=== PATIENT | male | born 1965 | race Caucasian/White ===

== ENCOUNTER 2025-01-08 22:31 | Emergency (ER) | payer BC, SELFPAY ==
[2025-01-08 22:35] VITALS: BP 172/113
[2025-01-08 23:06] LABS: COVID-19 Antigen Negative (Negative)
[2025-01-08 23:57] VITALS: BP 121/86
[2025-01-09] VITALS: BP 115/84
[2025-01-09 00:37] LABS: Hematocrit 44.7 % (39.0-52.0); Hemoglobin 15.6 g/dL (13.0-18.0); Mean Corp Hgb Conc. 34.9 g/dL (33.0-37.0); Mean Corpuscular Volume 89.9 fL (80.0-94.0); Nucleated Red Blood Cells % 0 % (-); Platelet Count 142 10^3/uL (130-400); Red Cell Dist. Width 14.6 % (11.5-14.5)
[2025-01-09 01:00] VITALS: BP 134/94
[2025-01-09 01:05] LABS: ALT (SGPT) 25 U/L (0-50); AST (SGOT) 31 U/L (17-59); Albumin 3.9 g/dl (3.5-5.0); Alkaline Phosphatase 62 U/L (38-126); Blood Urea Nitrogen 13 mg/dl (9-20); Calcium 9.1 mg/dl (8.4-10.2); Carbon Dioxide 27 mmol/L (22-30); Chloride 107 mmol/L (98-107); Glucose 91 mg/dl (70-99); Potassium 4.2 mmol/L (3.5-5.1); Sodium 142 mmol/L (135-145); Total Protein 6.4 g/dl (6.3-8.2); eGFR > 60.00
--- NOTE | 2025-01-09 01:13 | ED.GENMED ---
History of Present Illness
General
Chief Complaint: Fever
Source: patient
Exam Limitations: none
Time Seen by Provider: 01/08/25 23:31
Nursing documentation reviewed up to this point in time: agreed with
History of Present Illness
History of Present Illness:
59-year-old male with history of HTN, currently under treatment with chemotherapy for colon cancer with mets to the lungs, presents he states because 'my made me come, she thought I had meningitis.'
He states at 7:30 PM he developed a headache and had some neck discomfort. He states the headache was 6/10, frontal, he felt a little nauseous and at 8 PM he took 2 Motrin. He states his neck started being sore at work around 3 AM (he works at [employer]
overnight driving a truck). He states at 3:30 this morning his neck pain started, both sides, more annoying than painful. Pain is worse when turning his head to either side. He denies pain with swallowing. He states both his headache and his
nausea subsided after he took the ibuprofen at 8:00. He has had no fever. He has had no vomiting. He has had no diarrhea or constipation. He denies abdominal pain. He denies chest pain or trouble breathing. He has felt a little more fatigued
lately.
His was not home at the time and when she got home he told her about them and she made him come here for evaluation for meningitis.
Past History
Past History
ED Past Medical History: Cancer (Metastatic colon cancer to the lungs [facility] at [facility]), HTN and Other (Kidney stones)
Social History
Tobacco: Non-smoker
Personal:
Living: with family
Employment: Employed
Review of Systems
Review of Systems
Allergies reviewed?: Yes
All Other Systems: ROS reviewed and negative except as documented in HPI and ROS
Phy Exam
Physical Exam
Physical Exam:
GENERAL: No acute distress. A&Ox3.
CONSTITUTIONAL: Afebrile.
EYES: clear, conjunctivae normal, PERRL
ENMT: moist mucus membranes, Pharynx nl
RESPIRATORY: Regular respirations, nonlabored, lungs clear.
CARDIOVASCULAR: Regular rate and rhythm, no murmurs, no rubs.
GI: Soft, nontender, normal BS
MUSCULOSKELETAL: Mild tenderness posteriorly, bilateral paracervical muscles, full range of motion of neck. No spinal bony tenderness. Moves with ease. Well perfused.
SKIN: Warm, dry, pink
PSYCH: Normal mood and affect. Well kept, interactive and appropriate
NEUROLOGIC: Awake, alert and oriented. No focal neurological deficits
Course
Orders/Labs/Results
Orders:
Orders
01/08/25 22:41
COVID-19 Antigen Urgent
Source: Nasal Swab
Influenza A+B Rapid Molecular Urgent
ELKE Source: Nasal Swab
Specimen Description:
01/08/25 23:31
Complete Blood Count/With Diff Urgent
Comprehensive Metabolic Panel Urgent
Abnormal Lab Results
01/09/25
00:30
MCH 31.4 H pg
(27.0-31.0)
RDW 14.6 H %
(11.5-14.5)
01/09/25 00:30
01/09/25 00:30
Vital Signs
Initial and Last Documented VS:
Initial Vital Signs
Temp Pulse Resp BP Pulse Ox
97.9 F 78 20 172/113 97
01/08/25 22:35 01/08/25 22:35 01/08/25 22:35 01/08/25 22:35 01/08/25 22:35
Last Documented Vital Signs
Temp Pulse Resp BP Pulse Ox
97.7 F 63 23 134/94 94
01/08/25 23:51 01/09/25 01:30 01/09/25 01:30 01/09/25 01:00 01/09/25 01:30
MDM/Problems Addressed
Differential Diagnosis Includes:
Cervical muscle strain
Headache
MDM/Problems Addressed:
59-year-old male with history of HTN, currently under treatment with chemotherapy for colon cancer with mets to the lungs, presents he states because 'my made me come, she thought I had meningitis.'
He states at 7:30 PM he developed a headache and had some neck discomfort. He states the headache was 6/10, frontal, he felt a little nauseous and at 8 PM he took 2 Motrin. He states his neck started being sore at work around 3 AM (he works at [employer]
overnight driving a truck). He states at 3:30 this morning his neck pain started, both sides, more annoying than painful. Pain is worse when turning his head to either side. He denies pain with swallowing. He states both his headache and his
nausea subsided after he took the ibuprofen at 8:00. He has had no fever. He has had no vomiting. He has had no diarrhea or constipation. He denies abdominal pain. He denies chest pain or trouble breathing. He has felt a little more fatigued
lately.
His was not home at the time and when she got home he told her about them and she made him come here for evaluation for meningitis.
Afebrile, NAD, neck supple, pt pleasant, alert, non toxic, no suspicion of meningitis
CBC normal
CMP normal
Covid neg
Physical exam is consistent with mild cervical strain
Nothing worrisome in workup here tonight. Patient reassured
He is out of bed and moving around with ease
He is stable for discharge.
*Pulse Oximetry
SaO2: 97
Oxygen Mode of Delivery: Room air
Patient hypoxic: no
*Critical Care Note
Total Time (30-74mins, 75-104mins- exclusive of procedures): Not Applicable
ED Attending Note
-
Portions of this chart may have been created with voice recognition software.� Occasional wrong word or��sound alike� substitutions may have occurred due to the inherent limitations of voice recognition software.
Discharge Plan
Departure
Patient Disposition: Home (Routine Discharge)
Date of Disposition: 01/09/25
Time of Disposition: 01:23
Patient with high blood pressure during this ER visit?: No
Condition: Good
Discharge Problem:
Acute cervical myofascial strain, History of headache
Instructions: Headache in adults - ED (DC), Neck pain - ED (DC)
Prescriptions:
No Action
ondansetron 8 mg tablet,disintegrating
8 mg PO TID PRN (Reason: nausea and vomiting) Qty: 30 0RF
ketorolac 10 mg tablet
10 mg PO QID PRN (Reason: pain) Qty: 20 0RF
oxycodone 5 mg tablet
5 mg PO Q4H PRN (Reason: pain) Qty: 20 0RF
tamsulosin [Flomax] 0.4 mg Capsule
0.4 mg PO DAILY Qty: 10 0RF
Referrals:
Juan Williamson CRNP [Family Provider, General] - As needed
Activity Restrictions/Additional Instructions:
As we discussed, your workup here tonight shows nothing worrisome. Specifically no sign of meningitis.
Your lab work is normal
your COVID test is negative
Interventions
Interventions:
*Risk Screen - Suicide Last Done: 01/09/25 00:32
*General Assessment Last Done: 01/08/25 22:35
*ED- Fall Risk Assessment Last Done: 01/09/25 00:32
*ED COVID-19 Vaccine History Last Done: 01/09/25 00:32
*ED Influenza Vaccine History Last Done: 01/09/25 00:32
ED- Neurological Assessment Last Done: 01/09/25 00:03
ED-Skin Assessment Last Done: 01/09/25 00:03
Discharge Date and Time
Print Language: IRISH
[2025-01-09 01:43] VITALS: BP 144/94
== END 2025-01-09 01:40 | disposition home or self-care (01) ==
LOC: EMR 22:31
PROVIDERS: Registered Nurse; EMERGENCY PHYSICIAN Emergency Medicine; FAMILY PHYSICIAN Nurse Practitioner Gerontology
DX: S16.1XXA Strain of muscle, fascia and tendon at neck level, initial encounter (principal); X58.XXXA Exposure to other specified factors, initial encounter; I10 Essential (primary) hypertension; C18.9 Malignant neoplasm of colon, unspecified; C78.01 Secondary malignant neoplasm of right lung; C78.02 Secondary malignant neoplasm of left lung; Z92.21 Personal history of antineoplastic chemotherapy
CPT/HCPCS: 99283; 80053; 85025; 87502; 87811